=== PATIENT | male | born 1985 | race American Indian/Alaskan Native ===

== ENCOUNTER 2016-05-23 21:44 | Emergency (ER) | payer OTHER ==
[2016-05-23] MEDS ORDERED: BOOSTRIX IM ONE (23:18)
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
[2016-05-23] MEDS ORDERED: NORCO 5/325 PO ONE (23:48)
[2016-05-23] MEDS ORDERED: TRIPLE ANTIBIOTIC TP ONE (23:48)
[2016-05-24 00:47] VITALS: BP 136/86
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
== END 2016-05-24 01:38 | disposition home or self-care (01) ==
LOC: ED 21:44
DX: S61.411A Laceration without foreign body of right hand, initial encounter (principal); S50.811A Abrasion of right forearm, initial encounter; Y08.89XA Assault by other specified means, initial encounter; Y93.9 Activity, unspecified; Y92.89 Other specified places as the place of occurrence of the external cause; Y99.9 Unspecified external cause status
CPT/HCPCS: 90471; 90715; A6250